=== PATIENT | male | born 1960 | race Caucasian/White ===

== ENCOUNTER 2016-09-30 16:57 | Emergency (ER) | payer BC, OTHER ==
[2016-09-30] MEDS ORDERED: Dexamethasone 10 MG/ML VIAL ONE (17:02)
[2016-09-30] MEDS ORDERED: Famotidine 20 MG TAB ONE ×2 (17:05)
[2016-09-30] MEDS ORDERED: Albuterol Sulfate 2.5 mg/0.5 ml Neb ONE (17:09)
[2016-09-30] MEDS ORDERED: Dexamethasone 4 MG TAB ONE (20:56)
== END 2016-09-30 21:01 | disposition home or self-care (01) ==
LOC: MADERS 16:57
DX: T63.461A Toxic effect of venom of wasps, accidental (unintentional), initial encounter (principal); L50.0 Allergic urticaria
CPT/HCPCS: 96372; J1100; J7611; J8540